=== PATIENT | female | born 1935 | race Caucasian/White ===

== ENCOUNTER 2016-10-01 13:30 | Outpatient (RCR) | payer OTHER | END 2016-10-20 | disposition home or self-care (01) | LOC: PTY 13:30 | DX: M75.81 Other shoulder lesions, right shoulder (principal) | CPT/HCPCS: 97035; 97110; 97140; 97161; G0283 ==

== ENCOUNTER 2016-10-22 10:15 | Outpatient (RCR) | payer OTHER | END 2016-11-20 | disposition home or self-care (01) | LOC: PTY 10:15 | DX: M75.81 Other shoulder lesions, right shoulder (principal) | CPT/HCPCS: 97035; 97110; 97140; G0283 ==